=== PATIENT | female | born 1985 | race Caucasian/White ===

== ENCOUNTER → 2019-09-11 | Outpatient (CLI) | payer BC ==
[2019-06-15 11:03] VITALS: BP 166/78
[~2019-09-11] MED LIST: AMLO10TA4 PO; LABE100T5 PO
--- NOTE | 2019-09-11 10:04 | CARD ---
MR#: [id number] Date of Study: 09/11/2019 Ordering Physician: OTF DORMAN, Referring Physician: OTF DORMAN, Tech: Denise Howard RDCS APPROVED REPORT EXAM: Two-dimensional and M-mode echocardiogram with Doppler and color Doppler. Other Information Quality : Good INDICATION Hypertension/HCVD RISK FACTORS Hypertension Obesity 2D DIMENSIONS RVDd3.1 (2.9-3.5cm)Left Atrium(2D)3.3 (1.6-4.0cm) IVSd1.1 (0.7-1.1cm)Aortic Root(2D)3.0 (2.0-3.7cm) LVDd4.6 (3.9-5.9cm)LVOT Diameter2.2 (1.8-2.4cm) PWd1.1 (0.7-1.1cm)LVDs2.4 (2.5-4.0cm) FS (%) 30.0 %SV77.9 ml LVEF(%)60.0 (>50%) Aortic Valve AoV Peak [place].122.9cm/sAoV VTI22.1cm AO Peak GR.6.0mmHgLVOT Peak [place].92.8cm/s AO Mean GR.3mmHgAVA (VMAX)2.99cm2 SHIRLEY (VTI)3.30cm2 Mitral Valve MV E Zasvhvlf95.0cm/sMV DECEL QDLO228hg MV A Irwfyybw46.9cm/sE/A Ratio1.7 Pulmonary Vein S1 Eyxxnwuj84.3cm/sD2 Exwgcukk40.5cm/s LEFT VENTRICLE The left ventricle is normal size. There is normal left ventricular wall thickness. The left ventricu lar systolic function is normal and the ejection fraction is within normal range. The Ejection Fracti on is 55-60%. There is normal LV segmental wall motion. The left ventricular diastolic function and f illing is normal for age. RIGHT VENTRICLE The right ventricle is normal size. The right ventricular systolic function is normal. ATRIA The left atrium size is normal. The right atrium size is normal. The interatrial septum is intact wit h no evidence for an atrial septal defect or patent foramen ovale as noted on 2-D or Doppler imaging. AORTIC VALVE The aortic valve is normal in structure and function. Doppler and Color Flow revealed no significant aortic regurgitation. There is no significant aortic valvular stenosis. MITRAL VALVE The mitral valve is normal in structure and function. There is no evidence of mitral valve prolapse. There is no mitral valve stenosis. Doppler and Color Flow revealed no mitral valve regurgitation note d. TRICUSPID VALVE The tricuspid valve is normal in structure and function. Doppler and Color Flow revealed no tricuspid valve regurgitation noted. There is no tricuspid valve stenosis. PULMONIC VALVE The pulmonary valve is normal in structure and function. Doppler and Color Flow revealed no pulmonic valvular regurgitation. There is no pulmonic valvular stenosis. GREAT VESSELS The aortic root is normal in size. The ascending aorta is normal in size. The IVC is normal in size a nd collapses >50% with inspiration. PERICARDIAL EFFUSION There is no evidence of significant pericardial effusion. Critical Notification Critical Value: No <Conclusion> The left ventricular systolic function is normal and the ejection fraction is within normal range. Th e Ejection Fraction is 55-60%. There is normal LV segmental wall motion. Signed by : Cresencio Escobar, Electronically Approved : 09/11/2019 10:03:35
== END | disposition home or self-care (01) ==
LOC: ECHO 08:05
PROVIDERS: ATTEND Internal Medicine
DX: I10 Essential (primary) hypertension (principal)
CPT/HCPCS: 93306